=== PATIENT | female | born 1950 | race African-American/Black ===

== ENCOUNTER → 2018-02-26 | Outpatient (CLI) | payer OTHER ==
[2015-11-20 11:21] VITALS: BP 164/77
[~2018-02-26] MED LIST: HYDR-2868 PO; HYDR-3164 PO; INSU100I17 SQ; INSU100V8 SQ; LEVO25TA4 PO; LINA5TAB PO; LISI-130 PO; METF500T16 PO; SERT100T PO; SPIR1TAB3 PO; WARF-31 PO
--- NOTE | 2018-02-27 09:11 | RAD ---
DATE: 02/26/2018 EXAM: DIGITAL SCREEN BILAT W/CAD HISTORY: Routine screening. COMPARISON: Outside images. This study was interpreted with the benefit of Computerized Aided Detection (CAD). FINDINGS: Breast Density: FATTY The Breast Parenchyma is primarily fatty replaced. Breast parenchyma level density A.. No suspicious calcifications, spiculated masses or areas of architectural distortion. Skin and nipples are within normal limits. Benign-appearing scattered calcifications are seen. IMPRESSION: No mammographic evidence of malignancy. Stable mammogram. BI-RADS CATEGORY: 2 BENIGN FINDING(S) RECOMMENDED FOLLOW-UP: 12M 12 MONTH FOLLOW-UP PQRS compliance statement: Patient information was entered into a reminder system with a target due date for the next mammogram. Mammography is a sensitive method for finding small breast cancers, but it does not detect them all and is not a substitute for careful clinical examination. A negative mammogram does not negate a clinically suspicious finding and should not result in delay in biopsying a clinically suspicious abnormality. "Our facility is accredited by the [employer] Mammography Program."
== END | disposition home or self-care (01) ==
LOC: MAMMO 10:28
PROVIDERS: ATTEND Family Medicine
DX: Z12.31 Encounter for screening mammogram for malignant neoplasm of breast (principal)
CPT/HCPCS: 77067

== ENCOUNTER 2019-09-28 10:59 | Emergency (ER) | payer MEDICARE, OTHER ==
[~2019-09-28] VITALS: Ht 172.7 cm; Wt 136.0 kg
[2019-09-28 11:30] LABS: BASO # 0.1 x10^3/uL (0.0-0.2); BASO % 1 % (0-3); EOS # 0.3 x10^3/uL (0.0-0.7); EOS % 4 % (0-3); HEMATOCRIT 34.5 % (36.0-47.0); HEMOGLOBIN 11.2 g/dL (12.0-15.5); LYMPH # 2.4 x10^3/uL (1.0-4.8); LYMPH % 33 % (24-48); MEAN CORPUSCULAR HEMOGLOBIN 29 pg (25-35); MEAN CORPUSCULAR HGB CONC 33 g/dL (31-37); MEAN CORPUSCULAR VOLUME 90 fL (79-100); MONO # 0.5 x10^3/uL (0.0-1.1); MONO % 7 % (0-9); NEUT # 4.2 x10^3/uL (1.8-7.7); NEUT % 56 % (31-73); PLATELET COUNT 406 x10^3/uL (140-400); RED BLOOD COUNT 3.82 x10^6/uL (3.50-5.40); RED CELL DISTRIBUTION WIDTH 13.4 % (11.5-14.5); WHITE BLOOD COUNT 7.4 x10^3/uL (4.0-11.0)
[2019-09-28 11:40] LABS: PROTHROMBIN TIME PATIENT 12.2 SEC (11.7-14.0)
[2019-09-28 11:42] LABS: CALCIUM 9.4 mg/dL (8.5-10.1); CREATININE 1.4 mg/dL (0.6-1.0); GFR 45.2; POTASSIUM 3.1 mmol/L (3.5-5.1)
--- NOTE | 2019-09-28 11:44 | RAD ---
CT HEAD INDICATION: Altered mental status COMPARISON: 11/20/2015 Exposure: One or more of the following individualized dose reduction techniques were utilized for this examination: 1. Automated exposure control 2. Adjustment of the mA and/or kV according to patient size 3. Use of iterative reconstruction technique TECHNIQUE: 5 mm contiguous axial images were obtained from the skull base to the vertex in both bone and soft tissue algorithm. FINDINGS: Mild bilateral periventricular white matter hypodensities likely chronic small vessel ischemic disease. No evidence of acute intracranial hemorrhage. No extra-axial fluid collections. No mass effect or midline shift. Ventricular size is appropriate. Basal cisterns are patent. No fractures identified.Metcalf-white differentiation is preserved.Globes and orbits are within normal limits. Paranasal sinuses and mastoid air cells are clear. IMPRESSION: No acute intracranial findings. Electronically signed by: Irvin Lyman MD (09/28/2019 11:41 AM) [id number]
--- NOTE | 2019-09-28 11:50 | RAD ---
PORTABLE CHEST 1V History: Reason: aspiration / Spl. Instructions: / History: Comparison: None. Findings: Low lung volumes. Elevation the right hemidiaphragm. No pleural effusion. No pneumothorax. Patchy bibasilar opacities. Portable technique accentuates cardiac size. Impression: 1. Low lung volumes with patchy bibasilar opacities, may represent atelectasis. If persistent clinical concern, PA and lateral view the chest can better assess. 2. Elevation the right hemidiaphragm. Electronically signed by: Sal Hernandez DO (09/28/2019 11:47 AM) [id number]
[2019-09-28 11:54] LABS: ALBUMIN 3.4 g/dL (3.4-5.0); ALBUMIN/GLOBULIN RATIO 0.7 (1.0-1.7); MAGNESIUM 1.8 mg/dL (1.8-2.4); TOTAL BILIRUBIN 0.1 mg/dL (0.2-1.0); TOTAL PROTEIN 8.4 g/dL (6.4-8.2)
[2019-09-28] MEDS ORDERED: POTASSIUM CHLORIDE 10 MEQ TABLET.ER. PO ONE (12:15)
[2019-09-28 13:00] VITALS: BP 147/80
--- NOTE | 2019-09-28 13:41 | PHYS DOC ---
Past Medical History Past Medical History: Diabetes-Type II, High Cholesterol, Hypertension, Renal Disease Additional Past Medical Histor: endometriosis, bilat carpal tunnel, Past Surgical History: Hysterectomy Additional Past Surgical Histo: rt ankle surgery, fibroids, back, shoulder, thumb Smoking Status: Never Smoker Alcohol Use: None Drug Use: None General Adult EDM: Chief Complaint: BLOOD SUGAR PROBLEM HPI: HPI: Patient is a 69 year old female who was found unresponsive in her bed by her family this morning, EMS were called, they checked her blood sugar and it was 30. Patient was still breathing on her own. Patient was given glucagon inje ction by EMS, then she was given 250mL D10 while she was on route here. By the time she got here patient woke up, become awake alert and oriented. Blood sugar was rechecked and it was 175. Patient says she woke up this morning, took her morning insulin but did not eat anything. Patient denies suicidal ideation. Patient denies any chest pain, no abdominal pain, no nausea vomiting, no cough or fever. Patient denies any exposure to anybody who tested positive for COVID- 19. Review of Systems: Review of Systems: Constitutional: Denies fever or chills. [] Eyes: Denies change in visual acuity. [] HENT: Denies nasal congestion or sore throat. [] Respiratory: Denies cough or shortness of breath. [] Cardiovascular: Denies chest pain or edema. [] GI: Denies abdominal pain, nausea, vomiting, bloody stools or diarrhea. [] : Denies dysuria. [] Musculoskeletal: Denies back pain or joint pain. [] Integument: Denies rash. [] Neurologic: Denies headache, focal weakness or sensory changes. [] Endocrine: Denies polyuria or polydipsia. [] Lymphatic: Denies swollen glands. [] Psychiatric: Denies depression or anxiety. [] Heart Score: Risk Factors: Risk Factors: DM, Current or recent (<one month) smoker, HTN, HLP, family history of CAD, obesity. Risk Scores: Score 0 - 3: 2.5% MACE over next 6 weeks - Discharge Home Score 4 - 6: 20.3% MACE over next 6 weeks - Admit for Clinical Observation Score 7 - 10: 72.7% MACE over next 6 weeks - Early Invasive Strategies Current Medications: Current Medications Medications (Trade) Dose Ordered Sig/Dayron Start Time Stop Time Status Last Admin Dose Admin Potassium Chloride (Klor-Con) 40 meq 1X ONCE 09/28/19 12:15 09/28/19 12:16 DC 09/28/19 12:42 40 MEQ Allergies: Allergies: Allergies Coded Allergies Type Severity Reaction Last Updated Verified Penicillins Allergy Unknown hives 11/23/13 Yes Physical Exam: PE: Constitutional: Well developed, well nourished, no acute distress, non-toxic appearance. [] HENT: Normocephalic, atraumatic, bilateral external ears normal, oropharynx moist, no oral exudates, nose normal. [] Eyes: PERRLA, EOMI, conjunctiva normal, no discharge. [] Neck: Normal range of motion, no tenderness, supple, no stridor. [] Cardiovascular:Heart rate regular rhythm, no murmur [] Lungs & Thorax: Bilateral breath sounds clear to auscultation [] Abdomen: Bowel sounds normal, soft, no tenderness, no masses, no pulsatile masses. [] Skin: Warm, dry, no erythema, no rash. [] Back: No tenderness, no CVA tenderness. [] Extremities: No tenderness, no cyanosis, no clubbing, ROM intact, no edema. [] Neurologic: Alert and oriented X 3, normal motor function, normal sensory function, no focal deficits noted. [] Psychologic: Affect normal, judgement normal, mood normal. [] Current Patient Data: Labs: Laboratory Tests Test 09/28/19 11:00 09/28/19 11:20 09/28/19 13:24 Glucose (Fingerstick) 173 mg/dL (70-99) H 253 mg/dL (70-99) H White Blood Count 7.4 x10^3/uL (4.0-11.0) Red Blood Count 3.82 x10^6/uL (3.50-5.40) Hemoglobin 11.2 g/dL (12.0-15.5) L Hematocrit 34.5 % (36.0-47.0) L Mean Corpuscular Volume 90 fL (79-100) Mean Corpuscular Hemoglobin 29 pg (25-35) Mean Corpuscular Hemoglobin Concent 33 g/dL (31-37) Red Cell Distribution Width 13.4 % (11.5-14.5) Platelet Count 406 x10^3/uL (140-400) H Neutrophils (%) (Auto) 56 % (31-73) Lymphocytes (%) (Auto) 33 % (24-48) Monocytes (%) (Auto) 7 % (0-9) Eosinophils (%) (Auto) 4 % (0-3) H Basophils (%) (Auto) 1 % (0-3) Neutrophils # (Auto) 4.2 x10^3/uL (1.8-7.7) Lymphocytes # (Auto) 2.4 x10^3/uL (1.0-4.8) Monocytes # (Auto) 0.5 x10^3/uL (0.0-1.1) Eosinophils # (Auto) 0.3 x10^3/uL (0.0-0.7) Basophils # (Auto) 0.1 x10^3/uL (0.0-0.2) Prothrombin Time 12.2 SEC (11.7-14.0) Prothrombin Time INR 0.9 (0.8-1.1) Activated Partial Thromboplast Time 25 SEC (24-38) Sodium Level 142 mmol/L (136-145) Potassium Level 3.1 mmol/L (3.5-5.1) L Chloride Level 105 mmol/L (98-107) Carbon Dioxide Level 25 mmol/L (21-32) Anion Gap 12 (6-14) Blood Urea Nitrogen 27 mg/dL (7-20) H Creatinine 1.4 mg/dL (0.6-1.0) H Estimated GFR (Cockcroft-Gault) 45.2 BUN/Creatinine Ratio 19 (6-20) Glucose Level 158 mg/dL (70-99) H Calcium Level 9.4 mg/dL (8.5-10.1) Magnesium Level 1.8 mg/dL (1.8-2.4) Total Bilirubin 0.1 mg/dL (0.2-1.0) L Aspartate Amino Transferase (AST) 17 U/L (15-37) Alanine Aminotransferase (ALT) 12 U/L (14-59) L Alkaline Phosphatase 90 U/L (46-116) Troponin I Quantitative < 0.017 ng/mL (0.000-0.055) IN-Gmf-A-Type Natriuretic Peptide 81 pg/mL (0-124) Total Protein 8.4 g/dL (6.4-8.2) H Albumin 3.4 g/dL (3.4-5.0) Albumin/Globulin Ratio 0.7 (1.0-1.7) L Laboratory Tests 09/28/19 11:20 Laboratory Tests 09/28/19 11:20 Vital Signs: Vital Signs Date Time Temp Pulse Resp B/P (MAP) Pulse Ox O2 Delivery O2 Flow Rate FiO2 09/28/19 12:03 64 18 164/80 (108) 98 Room Air 09/28/19 11:04 91.0 91.0 EKG: EKG: [] Radiology/Procedures: Radiology/Procedures: [][address] [address] IMAGING REPORT Signed PATIENT: JOSESITO LIONOUNT: [id number] : 1950 LOCATION: ER AGE: 69 SEX: F EXAM STATUS: REG ER ORD. PHYSICIAN: NEETU MCALLISTER DO REASON: ams PROCEDURE: CT HEAD WO CONTRAST CT HEAD INDICATION: Altered mental status COMPARISON: 11/20/2015 Exposure: One or more of the following individualized dose reduction techniques were utilized for this examination: 1. Automated exposure control 2. Adjustment of the mA and/or kV according to patient size 3. Use of iterative reconstruction technique TECHNIQUE: 5 mm contiguous axial images were obtained from the skull base to the vertex in both bone and soft tissue algorithm. FINDINGS: Mild bilateral periventricular white matter hypodensities likely chronic small vessel ischemic disease. No evidence of acute intracranial hemorrhage. No extra-axial fluid collections. No mass effect or midline shift. Ventricular size is appropriate. Basal cisterns are patent. No fractures identified.Metcalf-white differentiation is preserved.Globes and orbits are within normal limits. Paranasal sinuses and mastoid air cells are clear. IMPRESSION: No acute intracranial findings. Electronically signed by: Irvin Lyman MD (09/28/2019 11:41 AM) [id number] DICTATED and SIGNED BY: IRVIN LYMAN MD DATE: 09/28/[address] [address] IMAGING REPORT Signed PATIENT: QUOC KENDALL ACCOUNT: [id number] : 10/01/1979 LOCATION: ER AGE: 39 SEX: M EXAM STATUS: REG ER ORD. PHYSICIAN: NEETU MCALLISTER DO REASON: abdominal pain PROCEDURE: CT ABD PELV W/ IV CONTRST ONLY CT abdomen and pelvis with contrast History: Abdominal pain Technique: After the administration of intravenous contrast, CT imaging was performed of the abdomen and pelvis. No oral contrast was given. Multiplanar images are reviewed. Exposure: One or more of the following individualized dose reduction techniques were utilized for this examination: 1. Automated exposure control 2. Adjustment of the mA and/or kV according to patient size 3. Use of iterative reconstruction technique. Comparison: None Findings: There is no significant abnormality of the visualized lung bases. There is no significant abnormality of the liver, spleen, pancreas, adrenal glands. Both kidneys enhance without hydronephrosis. Gallbladder is present without obvious intraluminal abnormality by CT. Accurate evaluation of bowel is limited without oral contrast and also due to the paucity of intra-abdominal and intrapelvic fat. However there is fairly severe wall thickening of the hepatic flexure and proximal transverse colon. There is mild dependent free fluid in the pelvis. No free air is identified. Small bowel is not significantly dilated. Normal caliber appendix is visualized. Urinary bladder is somewhat distended. There is mild plaque of the abdominal aorta. Impression: 1. There is severe wall thickening of the hepatic and proximal transverse colon as may be sequela of colitis or diverticulitis, underlying mass difficult to exclude by this exam. There is nonspecific mild free fluid dependently in the pelvis. Electronically signed by: Miguelina Card MD (09/28/2019 11:03 AM) [id number] DICTATED and SIGNED BY: MIGUELINA CARD MD DATE: 09/28/19 1103 Course & Med Decision Making: Course & Med Decision Making Pertinent Labs and Imaging studies reviewed. (See chart for details) Patient was given food to eat in the ER, her blood sugar has been stabilized. Patient awake alert oriented, she was instructed to take her insulin with food from now on. Patient denies any chest pain, no cough, no fever. Patient denies any nausea vomiting, no abdominal pain. Patient will need to follow-up with her family doctor for reevaluation this week. Bebe Disclaimer: Bebe Disclaimer: This electronic medical record was generated, in whole or in part, using a voice recognition dictation system. Departure Departure Impression: Primary Impression: Hypoglycemia Disposition: HOME, SELF-CARE Condition: IMPROVED Referrals: ARLEY GUERRIER MD (PCP) PLEASE CALL YOUR FAMILY DOCTOR TODAY FOR FOLLOW UP THIS WEEK Patient Instructions: Hypoglycemia, [id number] Additional Instructions: Thank you for visiting our Emergency Department. We appreciate you trusting us with your care. If any additional problems come up don't hesitate to return to visit us. Please follow up with your primary care provider so they can plan additional care if needed and know about the problem that you had. If symptoms worsen come back to the Emergency Department. Any concerning symptoms that start such as chest pain, shortness of air, weakness or numbness on one side of the body, running high fevers or any other concerning symptoms return to the ER. Please eat when you take insulin Justicifation of Admission Dx: Justifications for Admission: Justification of Admission Dx: N/A NEETU MCALLISTER DO Sep 28, 2019 13:41
--- NOTE | 2019-09-29 05:08 | EKG ---
[facility] [address] [place] [address] Test Date: 2019-09-28 Test Time: 11:08:33 Pat Name: COLE LION Department: Room: Gender: F Communication Equipment Repairer: : 1950 Requested By: NEETU MCALLISTER Order Number: [id number] Reading MD: Measurements Intervals [place] Rate: 68 P: 45 [place]: 178 QRS: -18 QRSD: 108 T: 101 QT: 462 QTc: 497 Interpretive Statements SINUS RHYTHM LEFTWARD AXIS T ABNORMALITY IN HIGH LATERAL LEADS PROLONGED QT ABNORMAL ECG RI6.01 No previous ECG available for comparison
== END 2019-09-28 13:50 | disposition home or self-care (01) ==
LOC: ER 10:59
DX: E11.649 Type 2 diabetes mellitus with hypoglycemia without coma (principal); E78.00 Pure hypercholesterolemia, unspecified; I10 Essential (primary) hypertension; N28.9 Disorder of kidney and ureter, unspecified; Z90.710 Acquired absence of both cervix and uterus; Z98.890 Other specified postprocedural states; Z88.0 Allergy status to penicillin
CPT/HCPCS: 36415; 70450; 71045; 80053; 82962; 83735; 83880; 84484; 85025; 85610; 85730; 93005; 99285